=== PATIENT | female | born 1960 | race Caucasian/White ===

== ENCOUNTER 2024-07-16 07:46 | Day surgery (SDC) | payer BC ==
[~2024-07-16] VITALS: Ht 165.1 cm; Wt 96.3 kg
[2024-07-16] MEDS: NS 250 ML IV ONE (08:02)
[2024-07-16] MEDS ORDERED: LIDOCAINE 2% MDV 20ML VIAL As Ordered ONE (09:02)
[2024-07-16] MEDS ORDERED: propofoL 200 MG/20 ML VIAL As Ordered ONE (09:02)
[2024-07-16] MEDS ORDERED: GLYCOPYRROLATE INJ 0.2 MG/ML 2 ML VIAL As Ordered ONE (09:21)
[2024-07-16 09:36] VITALS: BP 122/59; TEMP 97.5; O2SAT 95
== END 2024-07-16 10:00 | disposition home or self-care (01) ==
LOC: M OPP 07:46
PROVIDERS: ATTEND Internal Medicine Gastroenterology
DX: Z12.11 Encounter for screening for malignant neoplasm of colon (principal); K57.30 Diverticulosis of large intestine without perforation or abscess without bleeding; K64.8 Other hemorrhoids; Z87.891 Personal history of nicotine dependence; Z80.42 Family history of malignant neoplasm of prostate
CPT/HCPCS: 45378; J1596